=== PATIENT | male | born 1970 | race Caucasian/White ===

== ENCOUNTER 2020-08-01 17:28 | Outpatient (CLI) | payer OTHER, SELFPAY | END 2020-08-01 17:29 | disposition home or self-care (01) | LOC: ANHCOVIDVC 17:28 | PROVIDERS: PCP Family Medicine | DX: Z23 Encounter for immunization (principal) | CPT/HCPCS: 0001A; 91300 ==

== ENCOUNTER 2020-08-22 18:00 | Outpatient (CLI) | payer OTHER, SELFPAY | END 2020-08-22 18:01 | disposition home or self-care (01) | LOC: ANHCOVIDVC 18:00 | PROVIDERS: PCP Family Medicine | DX: Z23 Encounter for immunization (principal) | CPT/HCPCS: 0002A; 91300 ==

== ENCOUNTER 2023-12-15 09:39 | Emergency (ER) | payer OTHER, SELFPAY ==
--- NOTE | ~2023-12-15 | XR_ITS ---
XR chest 1V portable 12/15/2023 11:13 Indication: Shortness of breath. Upper respiratory infection. Procedure: AP portable chest Comparison: No prior studies for comparison. Findings: There is diffuse bilateral airspace disease. Small pleural effusions. Cardiomegaly. No pneu mothorax. Impression: 1: Diffuse bilateral airspace disease may represent edema or pneumonia. Reviewed, dictated and finalized at location B. Impression: 1: Diffuse bilateral airspace disease may represent edema or pneumonia.
[2023-12-15 10:04] VITALS: BP 174/55; PULSE 77; RESP 16; TEMP 36.6; O2SAT 95
[2023-12-15 10:28] VITALS: BP 163/56; PULSE 73; RESP 17; RESP 19; O2SAT 95
[2023-12-15] MEDS: SODIUM CHLORIDE 0.9% IV 2,000 ML 999 ML IV CONT (10:44)
[2023-12-15 10:56] LABS: Basophils Percent Auto 0.4 % (0.2-1.2); Eosinophils Absolute Auto 0.1 K/mm3 (0-0.3); Eosinophils Percent Auto 1.3 % (0-4.4); Hematocrit 39.8 % (42.0-52.0); Immature Granulocyte Absolute 0.05 K/mm3 (0.00-0.031); Immature Granulocyte Percent A 0.5 % (0-0.5); Lymphocytes Absolute Auto 1.38 K/mm3 (0.9-3.2); Lymphocytes Percent Auto 14.5 % (18.3-44.2); Mean Corpuscular HGB Conc 35.2 g/dl (32-36); Mean Corpuscular Volume 88.1 fl (80-100); Mean Platelet Volume 10.3 fl (7.4-10.4); Monocytes Absolute Auto 1.2 K/mm3 (0.1-0.6); Monocytes Percent Auto 12.5 % (2.6-8.5); Neutrophils Absolute Auto 6.8 K/mm3 (1.3-6.7); Neutrophils Percent Auto 70.8 % (45.5-73.1); Platelet Count Result 160 k/mm3 (150-375); Red Blood Count 4.52 M/mm3 (4.6-6.20); White Blood Count 9.6 K/mm3 (4.5-10.0)
[2023-12-15 11:01] LABS: Alanine Aminotransferase 38 U/L (6-50); Albumin Level 3.3 g/dL (3.5-5.1); Alkaline Phosphatase 98 U/L (38-126); Anion Gap 10 mmol/L (4-12); Aspartate Amino Transferase 27 U/L (17-59); Bilirubin,Total 0.7 mg/dL (0.2-1.3); Blood Urea Nitrogen 36 mg/dL (9-20); Calcium 8.3 mg/dL (8.4-10.2); Carbon Dioxide 28 mmol/L (22-30); Chloride 97 mmol/L (98-107); Estimated CRCL calculation 69 ml/min; Estimated Glomerular Filt Rate 53; Glucose 114 mg/dL (65-110); Potassium 3.9 mmol/L (3.4-5.0); Sodium 135 mmol/L (137-145)
--- NOTE | 2023-12-15 11:39 | ED.GENADULT ---
HPI - General Adult General Chief complaint: Unspecified Stated complaint: DIFF TO TAKE DEEP BREATH Time Seen by Provider: 12/15/23 10:25 History of Present Illness HPI narrative: This is a 53-year-old male presenting to the ED with chief complaint fatigue. Five days ago patient developed nausea vomiting diarrhea. Since then he has felt weak and tired. He has also feels like he cannot take a deep breath although he does not feel particularly short of breath. Overall patient says his condition is improving but is concerned because he has just not gotten better quicker. Patient denies fevers chills chest pain abdominal pain or urinary symptoms. Patient has been eating and drinking but is not back to his normal amount yet. Patient was seen in urgent care and had a negative COVID and fluid that time. Related Data Allergies Allergy/AdvReac Type Severity Reaction Status Date / Time No Known Allergies Allergy Verified 10/21/22 08:53 REPLACED BY [facility] Past Medical History Medical History (Updated 12/15/23 @ 11:44 by Moe Petersen MD) Parotid gland enlargement Family History Family History Mother Hypertension Family history of elevated blood lipids Family history of chronic obstructive pulmonary disease Father Malignant neoplasm of prostate Family history of malignant neoplasm of kidney Social History Social History Social History: caffeine-rarely Smoking status: Former smoker Smoking end date: 05/31/06 Alcohol intake: current Substance use: never Lack of Transportation: No Lack of Food: Never True Current Housing: I Have Housing Concerned About Future Housing: No Difficulty Paying Gas/Electric Bills: No Difficulty Paying for Meds: No Currently Unemployed: No Education: High School Diploma/GED Difficulty w/ Childcare or Family Care: No Exam Narrative: APPEARANCE: No apparent distress. Well-appearing Head: atraumatic. EYES: EOMI, NOSE: Atraumatic NECK: Trachea midline RESPIRATORY: No increased rate of breathing, scattered crackles on auscultation CARDIOVASCULAR: RRR, no peripheral edema ABDOMINAL: Non-distended soft nontender MUSCULOSKELETAl: No obvious deformities NEURO: Alert. Moving 4/4 extremities SKIN:: Warm, dry. Normal color PSYCHIATRIC: Normal affect Course Vital Signs Vital signs: Vital Signs Temperature 98 F 12/15/23 10:04 Pulse Rate 77 12/15/23 10:04 Respiratory Rate 16 12/15/23 10:04 Blood Pressure 174/55 H 12/15/23 10:04 Pulse Oximetry 95 12/15/23 10:04 Oxygen Delivery Room Air 12/15/23 10:04 Temperature 98 F 12/15/23 10:04 Pulse Rate 73 12/15/23 10:28 Respiratory Rate 19 12/15/23 10:28 Blood Pressure 163/56 H 12/15/23 10:28 Pulse Oximetry 95 12/15/23 10:28 Oxygen Delivery Room Air 12/15/23 10:04 Medical Decision Making MDM Narrative Medical decision making narrative: -Course: 53-year-old male presenting 5 days after her viral symptoms. Patient given fluid resuscitation for suspected dehydration. Chest x-ray showed diffuse infiltrates consistent with atypical pneumonia. Patient was re-evaluated. He is feeling better after fluid resuscitation. He does not have any respiratory distress, tachypnea or oxygen requirements. Patient is a good candidate for outpatient management of his pneumonia. Patient started on Augmentin doxycycline discharged with primary care follow-up. Given return precautions. -DDX includes but is not limited to: Viral syndrome, dehydration, -Co-morbidities complicating care: Hypertension, hyperlipidemia -Independent interpretation of studies: Labs reviewed. Chest x-ray showed atypical pneumonia. -Interventions: Augmentin, doxycycline, 2 L normal saline -Shared decision making / Disposition: Discharge -RX Augmentin, doxycycline Vital Signs Vital Signs: Gali
[2023-12-15] MEDS: DOXYCYCLINE HYCLATE 100 MG TABLET PO (12:01)
[2023-12-15] MEDS: AMOXICILLIN/CLAVULANATE K 875-125 MG TAB 1 TABLET PO (12:01)
--- NOTE | 2024-01-03 09:20 | PC.NURSE ---
LATE ENTRY This note is being entered to document information to the patient's record. The following information was omitted on [12/15/23], by [Farida Maynard RN]. NS stop time is 1140.
== END 2023-12-15 12:06 | disposition home or self-care (01) ==
PROVIDERS: Emergency Provider Emergency Medicine
DX: J18.9 Pneumonia, unspecified organism (principal); Z87.891 Personal history of nicotine dependence
CPT/HCPCS: 36415; 71045; 80053; 85025; 96360; 99283; A9270; J7030